=== PATIENT | female | born 1935 | race Caucasian/White ===

== ENCOUNTER 2016-12-26 10:20 | Emergency (ER) | payer MEDICARE, BC ==
[2016-12-26 10:36] VITALS: BP 142/83
--- NOTE | 2016-12-26 11:25 | EDM.PDOC ---
ED HPI ENT - General Chief Complaint: ENT Problem Stated Complaint: NOSE BLEED Time Seen by Provider: 12/26/16 11:13 Source: Reports: Patient, Family, RN notes reviewed History Limitations: Reports: No limitations - History of Present Illness INITIAL COMMENTS - FREE TEXT/NARRATIVE: 81-year-old female presents as a complaint of nosebleed, happened at 9 AM this morning sudden onset she did blow her nose in place and nose clip on. She recently had vascular stenting is now on Combivent Plavix, eliquis and aspirin also history of CVA denies any trauma - Related Data Allergies/ADRs: Allergies Allergy/AdvReac Type Severity Reaction Status Date / Time amoxicillin [Amoxicillin] Allergy Rash Verified 07/28/15 23:42 diclofenac Allergy Hives Verified 07/28/15 23:43 Macrolide Antibiotics Allergy Cannot Verified 12/26/16 10:47 Remember tizanidine HCl Allergy Hives Verified 07/28/15 23:43 [From Zanaflex] erythromycin base AdvReac Nausea and Verified 07/28/15 23:42 [Erythromycin Base] Vomiting Home Meds: Home Meds Atenolol 25 mg PO BID 02/18/15 [History] Lisinopril 2.5 mg PO DAILY 02/18/15 [History] Rosuvastatin [Crestor] 40 mg PO BEDTIME 02/18/15 [History] Cholecalciferol (Vitamin D3) [Vitamin D3] 2,000 unit PO DAILY 03/09/15 [History] Cranberry Conc/Ascorbic Acid [Cranberry Plus Vitamin C Sftgl] 1 ampule PO DAILY 03/09/15 [History] Nitroglycerin [Nitrostat] 0.4 mg SL ASDIRECTED 03/09/15 [History] Apixaban [Eliquis] 1 tab PO BID 12/26/16 [History] Aspirin [Halfprin] 1 tab PO DAILY 12/26/16 [History] Clopidogrel [Plavix] 75 mg PO DAILY 12/26/16 [History] Estradiol [Divigel] 1 dose TOP ASDIRECTED 12/26/16 [History] Pantoprazole [ProTONIX] 1 tab PO DAILY 12/26/16 [History] Past Medical History HEENT History: Reports: Cataract, Epistaxis Cardiovascular History: Reports: Afib, CAD, High cholesterol, Hypertension, [place] Respiratory History: Reports: Other (see below) Other Respiratory History: pneumonia Gastrointestinal History: Reports: GERD Other Gastrointestinal History: pyloric stenosis as an infant [employer]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 Other Female Surgeries/Procedures: Bladder suspension/rectalceal Social & Family History - Tobacco Use Smoking Status *Q: Never Smoker Years of Tobacco use: 15 Used Tobacco, but Quit: Yes Month Tobacco Last Used: 0 Second Hand Smoke Exposure: No - Alcohol Use Days Per Week of Alcohol Use: 0 Number of Drinks Per Day: 1 Total Drinks Per Week: 0 - Recreational Drug Use Recreational Drug Use: No ED ROS ENT - Review of Systems Review Of Systems: See Below Constitutional: Reports: no symptoms HEENT: Reports: Nosebleed Respiratory: Reports: No Symptoms Cardiovascular: Reports: No symptoms ED EXAM, ENT - Physical Exam Exam: See Below Exam Limited By: No limitations General Appearance: alert, WD/WN, no apparent distress Nose: normal inspection, dried blood Course - Vital Signs Last Recorded V/S: Last Vital Signs Temp 97.5 F 12/26/16 10:44 Pulse 84 12/26/16 10:44 Resp 14 12/26/16 10:44 BP 142/83 H 12/26/16 10:44 Pulse Ox 98 12/26/16 10:44 Departure - Departure Time of Disposition: 11:58 Disposition: Home, Self-Care 01 Condition: good Clinical Impression: Epistaxis Forms: ED Department Discharge Additional Instructions: 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, call or return to the ED with worsening of symptoms - Assessment/Plan Plan: Assessment Acuity = acute Site and laterality = epistaxis complicated patient with known history of atrial fibrillation, history of CVA recent stenting for coronary artery disease on triple therapy anticoagulation Etiology = combination aspirin, Plavix and eliquis Manifestations = none Location of injury = home Lab values = none Plan The bleeding had stopped by the time she arrived to the ED I did have a long discussion with her about her triple therapy one possibility is that she stop the eliquis for 6 months depending on her risk of stroke 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 This note was dictated using [employer] voice recognition software please call with any questions.
== END 2016-12-26 12:03 | disposition home or self-care (01) ==
LOC: JP.ED 10:20
DX: R04.0 Epistaxis (principal); I25.2 Old myocardial infarction; I10 Essential (primary) hypertension; I25.10 Atherosclerotic heart disease of native coronary artery without angina pectoris; I48.91 Unspecified atrial fibrillation; E78.00 Pure hypercholesterolemia, unspecified; K21.9 Gastro-esophageal reflux disease without esophagitis; F32.9 Major depressive disorder, single episode, unspecified; Z86.73 Personal history of transient ischemic attack (TIA), and cerebral infarction without residual deficits; Z98.49 Cataract extraction status, unspecified eye; Z95.5 Presence of coronary angioplasty implant and graft; Z98.890 Other specified postprocedural states; Z79.02 Long term (current) use of antithrombotics/antiplatelets; Z79.899 Other long term (current) drug therapy; Z88.1 Allergy status to other antibiotic agents; Z88.8 Allergy status to other drugs, medicaments and biological substances
CPT/HCPCS: 99282; 99283

== ENCOUNTER 2017-07-26 12:57 | Emergency (ER) | payer MEDICARE, BC ==
[2017-07-26] MEDS ORDERED: Oxymetazoline 0.05% Nasal Spray 15 ML Bottle NAS ONE (14:08)
--- NOTE | 2017-07-26 14:09 | EDM.PDOC ---
ED HPI GENERAL MEDICAL PROBLEM - General Chief Complaint: ENT Problem Stated Complaint: NOSE BLEED Time Seen by Provider: 07/26/17 14:08 Source of Information: Reports: Patient History Limitations: Reports: No Limitations - History of Present Illness INITIAL COMMENTS - FREE TEXT/NARRATIVE: pt is on plavix and asa and elequist. Wandyhas been having alot of nose bleeds off and on. Today when it started she was in town and it lasted about 2 hours. She had a nasal clamp and put that on. By the time she got here it was already improving. Onset: Today Duration: Hour(s): Associated Symptoms: Reports: No Other Symptoms, Other ( bleeding seemed to be getting better. ) - Related Data Allergies Allergy/AdvReac Type Severity Reaction Status Date / Time amoxicillin [Amoxicillin] Allergy Rash Verified 07/26/17 13:13 diclofenac Allergy Hives Verified 07/26/17 13:13 Macrolide Antibiotics Allergy Cannot Verified 07/26/17 13:13 Remember tizanidine HCl Allergy Hives Verified 07/26/17 13:13 [From Zanaflex] erythromycin base AdvReac Nausea and Verified 07/26/17 13:13 [Erythromycin Base] Vomiting Home Meds: Home Meds Lisinopril 2.5 mg PO DAILY 02/18/15 [History] Rosuvastatin [Crestor] 40 mg PO BEDTIME 02/18/15 [History] Cholecalciferol (Vitamin D3) [Vitamin D3] 2,000 unit PO DAILY 03/09/15 [History] Cranberry Conc/Ascorbic Acid [Cranberry Plus Vitamin C Sftgl] 1 ampule PO DAILY 03/09/15 [History] Nitroglycerin [Nitrostat] 0.4 mg SL ASDIRECTED 03/09/15 [History] Apixaban [Eliquis] 1 tab PO BID 12/26/16 [History] Aspirin [Halfprin] 1 tab PO DAILY 12/26/16 [History] Clopidogrel [Plavix] 75 mg PO DAILY 12/26/16 [History] Estradiol [Divigel] 1 dose TOP ASDIRECTED 12/26/16 [History] Pantoprazole [ProTONIX] 1 tab PO DAILY 12/26/16 [History] Metoprolol Tartrate [Metoprolol Tartrate] 50 mg PO BID 07/26/17 [History] Past Medical History HEENT History: Reports: Cataract, Epistaxis Cardiovascular History: Reports: Afib, CAD, High Cholesterol, Hypertension, [place] Respiratory History: Reports: Other (See Below) Other Respiratory History: pneumonia Gastrointestinal History: Reports: GERD Other Gastrointestinal History: 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: Reports: Musculoskeletal History: Reports: Osteoporosis Neurological History: Reports: CVA, TIA Psychiatric History: Reports: Depression Hematologic History: Reports: Anticoagulation Therapy - Infectious Disease History Infectious Disease History: Reports: Chicken Pox - Past Surgical History HEENT Surgical History: Reports: Cataract Surgery Cardiovascular Surgical History: Reports: Coronary Artery Stent, Other (See Below) Other Cardiovascular Surgeries/Procedures: Stents times 2 Other Female Surgeries/Procedures: Bladder suspension/rectalceal Social & Family History - Tobacco Use Smoking Status *Q: Never Smoker Years of Tobacco use: 15 Used Tobacco, but Quit: Yes Month Tobacco Last Used: 0 Second Hand Smoke Exposure: No - Caffeine Use Caffeine Use: Reports: Coffee - Alcohol Use Days Per Week of Alcohol Use: 0 Number of Drinks Per Day: 1 Total Drinks Per Week: 0 - Recreational Drug Use Recreational Drug Use: No ED ROS ENT - Review of Systems Review Of Systems: See Below Constitutional: Reports: No Symptoms HEENT: Reports: Nosebleed Respiratory: Reports: No Symptoms Cardiovascular: Reports: No Symptoms Endocrine: Reports: No Symptoms GI/Abdominal: Reports: No Symptoms : Reports: No Symptoms Musculoskeletal: Reports: No Symptoms Skin: Reports: No Symptoms Neurological: Reports: No Symptoms Psychiatric: Reports: No Symptoms ED EXAM, ENT - Physical Exam Exam: See Below Text/Narrative:: pt arrived with bleeding from the left nostril. She had a nasal clmp on. The bleeding has stopped. The nose was sprayed with afrin. This looks good at this time. Exam Limited By: No Limitations General Appearance: Alert, Anxious Ears: Normal TMs Nose: Other (pt was ozzing slightly from the left nostril) Mouth/Throat: Normal Inspection Head: Atraumatic Neck: Normal Inspection Respiratory/Chest: No Respiratory Distress Course - Vital Signs Last Recorded V/S: Last Vital Signs Temp 36.0 C 07/26/17 13:06 Pulse 72 07/26/17 13:06 Resp 14 07/26/17 13:06 BP 172/94 H 07/26/17 13:06 Pulse Ox 99 07/26/17 13:06 - Orders/Labs/Meds Meds: Medications Discontinued Medications Generic Name Dose Route Start Last Admin Trade Name Eusebio PRN Reason Stop Dose Admin Oxymetazoline HCl 1 ml 07/26/17 14:08 07/26/17 14:14 Afrin Original 0.05% Nasal Henning COURTNEY 07/26/17 14:09 1 ml ONETIME ONE Administration - Re-Assessments/Exams Free Text/Narrative Re-Assessment/Exam: 07/26/17 14:53 after it was sprayed there was no further bleeding. Departure - Departure Time of Disposition: 14:47 Disposition: Home, Self-Care 01 Condition: Fair Clinical Impression: Nasal bleeding - Discharge Information Referrals: Francisco España MD [Primary Care Provider] - Forms: ED Department Discharge Care Plan Goals: humidifier, If pt is ozzing use afrin spray to shrink the. Use the nasal clamp vessels
[2017-07-26 14:52] VITALS: BP 102/53
== END 2017-07-26 15:04 | disposition home or self-care (01) ==
LOC: JP.ED 12:57
DX: R04.0 Epistaxis (principal); I10 Essential (primary) hypertension; I48.91 Unspecified atrial fibrillation; K21.9 Gastro-esophageal reflux disease without esophagitis; Z79.82 Long term (current) use of aspirin; Z79.899 Other long term (current) drug therapy; Z88.1 Allergy status to other antibiotic agents; Z88.8 Allergy status to other drugs, medicaments and biological substances
CPT/HCPCS: 99282; 99283

== ENCOUNTER 2019-11-16 10:37 | Emergency (ER) | payer MEDICARE, BC ==
--- NOTE | 2019-11-16 12:29 | CRLCT ---
INDICATION: Near syncope. TECHNIQUE: Noncontrast head CT scan. COMPARISON: Head CT dated 10/29/2016. FINDINGS: Axial noncontrast images through the brain parenchyma demonstrates no acute intracranial hemorrhage or mass. No midline shift. No abnormal extra-axial air fluid collections periventricular hypo lucencies may represent chronic small vessel ischemic change. Mucosal thickening of the ethmoid air cells paranasal sinuses mastoid air cells skull and scalp appear unremarkable. IMPRESSION: No acute intracranial hemorrhage or mass. Please note that all CT scans at this facility use dose modulation, iterative reconstruction, and/or weight-based dosing when appropriate to reduce radiation dose to as low as reasonably achievable. Dictated by Fara Huerta MD @ Nov 16 2019 12:24PM Signed by Dr. Fara Huerta @ Nov 16 2019 12:27PM
[2019-11-16] MEDS ORDERED: Meclizine 25 MG Tab PO ONE (13:11)
--- NOTE | 2019-11-16 14:41 | EDM.PDOC ---
ED HPI GENERAL MEDICAL PROBLEM - General Chief Complaint: Neuro Symptoms/Deficits Stated Complaint: BECAME DIZZY AND FELL Time Seen by Provider: 11/16/19 11:00 Source of Information: Reports: Patient History Limitations: Reports: No Limitations - History of Present Illness INITIAL COMMENTS - FREE TEXT/NARRATIVE: pt got up and was doing fine this am. She suddenly was very weak and off balance and she did fall against a chair and she did hit the left chest and cocyx area. She still is feeling dizzy and like the room is spinning. She does not have a headache,. She does not have any visual symptopms. Onset: Today, Sudden Duration: Hour(s): Location: Reports: Head, Chest, Back Associated Symptoms: Reports: Diaphoresis, Syncope, Other (pt fell but she did not pass out. ) - Related Data Allergies Allergy/AdvReac Type Severity Reaction Status Date / Time amoxicillin [Amoxicillin] Allergy Rash Verified 11/16/19 11:04 diclofenac Allergy Hives Verified 11/16/19 11:04 Macrolide Antibiotics Allergy Cannot Verified 11/16/19 11:04 Remember tizanidine HCl Allergy Hives Verified 11/16/19 11:04 [From Zanaflex] erythromycin base AdvReac Nausea and Verified 11/16/19 11:04 [Erythromycin Base] Vomiting Home Meds: Home Meds Lisinopril 2.5 mg PO DAILY 02/18/15 [History] Rosuvastatin [Crestor] 40 mg PO BEDTIME 02/18/15 [History] Cholecalciferol (Vitamin D3) [Vitamin D3] 2,000 unit PO DAILY 03/09/15 [History] Cranberry Conc/Ascorbic Acid [Cranberry Plus Vitamin C Sftgl] 1 ampule PO DAILY 03/09/15 [History] Nitroglycerin [Nitrostat] 0.4 mg SL ASDIRECTED 03/09/15 [History] Apixaban [Eliquis] 1 tab PO BID 12/26/16 [History] Aspirin [Halfprin] 1 tab PO DAILY 12/26/16 [History] Pantoprazole [ProTONIX] 1 tab PO DAILY 12/26/16 [History] Metoprolol Tartrate 50 mg PO BID 07/26/17 [History] Past Medical History HEENT History: Reports: Cataract, Epistaxis Cardiovascular History: Reports: Afib, CAD, High Cholesterol, Hypertension, [place] Respiratory History: Reports: Other (See Below) Other Respiratory History: pneumonia Gastrointestinal History: Reports: GERD Other Gastrointestinal History: 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 History: Reports: Musculoskeletal History: Reports: Osteoporosis Neurological History: Reports: CVA, TIA Psychiatric History: Reports: Depression Hematologic History: Reports: Anticoagulation Therapy - Infectious Disease History Infectious Disease History: Reports: Chicken Pox - Past Surgical History HEENT Surgical History: Reports: Cataract Surgery Cardiovascular Surgical History: Reports: Coronary Artery Stent, Other (See Below) Other Cardiovascular Surgeries/Procedures: Stents times 2 Other Female Surgeries/Procedures: Bladder suspension/rectalceal Social & Family History - Tobacco Use Smoking Status *Q: Never Smoker - Caffeine Use Caffeine Use: Reports: Coffee ED ROS GENERAL - Review of Systems Review Of Systems: See Below Constitutional: Reports: No Symptoms HEENT: Reports: No Symptoms Respiratory: Reports: Other ( some left sided chest pain) Cardiovascular: Reports: No Symptoms Endocrine: Reports: No Symptoms GI/Abdominal: Reports: No Symptoms : Reports: Hematuria Musculoskeletal: Reports: No Symptoms Neurological: Reports: Other ( sensation of vertigo) Psychiatric: Reports: Anxiety ED EXAM, NEURO - Physical Exam Exam: See Below Text/Narrative:: pt arrived after having a sudden episode of weakness and being off balance. She did fall against the chair. she hit her left chest with bruising . She hit her left coccyx. She is on elequist. Exam Limited By: No Limitations General Appearance: Alert, Anxious, Moderate Distress, Other (pupils are equal and reactive. ) Ears: Normal TMs Nose: Normal Inspection Throat/Mouth: Normal Inspection Head Exam: Atraumatic Neck: Normal Inspection Respiratory/Chest: No Respiratory Distress, Other (pt has a large bruise over the left lateral chest area. She is tender to palpate in this area. ) Cardiovascular: Regular Rate, Rhythm GI/Abdominal: Soft, Non-Tender (Female) Exam: Deferred Rectal (Female) Exam: Deferred Neurological: Alert, Oriented x 3 Course - Vital Signs Last Recorded V/S: Last Vital Signs Temp 36.0 C L 11/16/19 11:19 Pulse 63 11/16/19 14:00 Resp 17 11/16/19 12:18 BP 137/76 11/16/19 14:00 Pulse Ox 97 11/16/19 12:18 Orthostatic Blood Pressure [ 166/94 Standing] Orthostatic Blood Pressure [ 171/94 Sitting] Orthostatic Blood Pressure [ 175/90 Supine] - Orders/Labs/Meds Labs: Laboratory Tests 11/16/19 11/16/19 11/16/19 Range/Units 10:57 11:02 11:02 WBC 7.2 (4.5-11.0) K/uL RBC 4.35 (3.30-5.50) M/uL Hgb 13.2 (12.0-15.0) g/dL Hct 41.8 (36.0-48.0) % MCV 96 (80-98) fL MCH 30 (27-31) pg MCHC 32 (32-36) % Plt Count 214 (150-400) K/uL Neut % (Auto) 63 (36-66) % Lymph % (Auto) 23 L (24-44) % [place] % (Auto) 10 H (2-6) % Eos % (Auto) 3 (2-4) % Baso % (Auto) 0 (0-1) % Sodium 140 (140-148) mmol/L Potassium 4.0 (3.6-5.2) mmol/L Chloride 102 (100-108) mmol/L Carbon Dioxide 28 (21-32) mmol/L Anion Gap 9.7 (5.0-14.0) mmol/L BUN 19 H (7-18) mg/dL Creatinine 0.7 (0.6-1.0) mg/dL Est Cr Clr Drug Dosing 50.37 mL/min Estimated GFR (MDRD) > 60 (>60) Glucose 118 H (74-106) mg/dL Calcium 8.9 (8.5-10.1) mg/dL Total Bilirubin 0.5 D (0.2-1.0) mg/dL AST 22 (15-37) U/L ALT 29 (12-78) U/L Alkaline Phosphatase 77 (46-116) U/L Total Protein 7.1 (6.4-8.2) g/dL Albumin 3.4 (3.4-5.0) g/dL Globulin 3.7 H (2.3-3.5) g/dL Albumin/Globulin Ratio 0.9 L (1.2-2.2) Urine Color Yellow (YELLOW) Urine Appearance Clear (CLEAR) Urine pH 7.0 (5.0-8.0) Ur Specific [place] 1.010 (1.008-1.030) Urine Protein Negative (NEGATIVE) mg/dL Urine Glucose (UA) Negative (NEGATIVE) mg/dL Urine Ketones Negative (NEGATIVE) mg/dL Urine Occult Blood Negative (NEGATIVE) Urine Nitrite Negative (NEGATIVE) Urine Bilirubin Negative (NEGATIVE) Urine Urobilinogen 0.2 (0.2-1.0) EU/dL Ur Leukocyte Esterase Negative (NEGATIVE) Urine RBC Not seen (0-5) Urine WBC Not seen (0-5) Ur Epithelial Cells Few Amorphous Sediment Not seen Urine Bacteria Not seen Urine Mucus Not seen Meds: Medications Discontinued Medications Generic Name Dose Route Start Last Admin Trade Name Freq PRN Reason Stop Dose Admin Meclizine HCl 25 mg 11/16/19 13:11 11/16/19 13:24 Antivert PO 11/16/19 13:12 25 mg ONETIME ONE Administration - Re-Assessments/Exams Free Text/Narrative Re-Assessment/Exam: 11/18/19 10:36 pt arrived with a history of a episiode of weakness. She had a cat scan of the head that was normal. She had normal labs and xrays of her chest ribs and spine- -lumbar and coccyx. She still had some vertigo. She was given antivert and she gradually improved. By history she has had one previous episode of vertigo. Departure - Departure Time of Disposition: 14:41 Disposition: Home, Self-Care 01 Condition: Fair Clinical Impression: Inner ear dysfunction, Vertigo, Contusion of left chest wall, Contusion of coccyx - Discharge Information Instructions: Vertigo, [id number] Referrals: Francisco España MD [Primary Care Provider] - Forms: ED Department Discharge Care Plan Goals: low activity, tylenol for pauin, antivert 25 mg tid for next 2-3 days and then prn. rtc if further symptoms. Sepsis Event Note - Evaluation Sepsis Screening Result: No Definite Risk - Focused Exam Date Exam was Performed: 11/18/19 Time Exam was Performed: 10:28
[2019-11-16 14:52] VITALS: BP 137/76; PULSE 63
--- NOTE | 2019-11-17 12:06 | CR ---
Ribs 2V wo Chest Lt, Lumbar Spine 2 or 3V, Sacrum Coccyx Min 2V CLINICAL HISTORY: Contusion FINDINGS: There is no acute fracture within the ribs. No destructive changes are seen. There is no focal pleural thickening or obvious effusion. Prescribe aorta IMPRESSION: Negative left ribs. Ribs 2V wo Chest Lt, Lumbar Spine 2 or 3V, Sacrum Coccyx Min 2V CLINICAL HISTORY: Pain FINDINGS: There is a transitional sacral segment. There is narrowing of the L5-S1 disc space. There is a grade 1 anterolisthesis of L5 on S1 and some vacuum disc phenomena. Some bone detail is obscured by bowel content. No fracture line is identified. Impression: Transitional sacral segment No definite fracture seen. Ribs 2V wo Chest Lt, Lumbar Spine 2 or 3V, Sacrum Coccyx Min 2V CLINICAL HISTORY: Back pain FINDINGS: The vertebral body heights are maintained. There is a transitional lumbar sacral segment. There is narrowing at the L5-S1 disc space. There is grade 1 anterolisthesis of L5 on S1 due to facet disease. There is mild diffuse spondylosis. 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
== END 2019-11-16 14:52 | disposition home or self-care (01) ==
LOC: JP.ED 10:37
DX: S20.212A Contusion of left front wall of thorax, initial encounter (principal); S30.0XXA Contusion of lower back and pelvis, initial encounter; R42 Dizziness and giddiness; H83.2X9 Labyrinthine dysfunction, unspecified ear; I10 Essential (primary) hypertension; I48.91 Unspecified atrial fibrillation; Z86.73 Personal history of transient ischemic attack (TIA), and cerebral infarction without residual deficits; Z88.1 Allergy status to other antibiotic agents; Z88.6 Allergy status to analgesic agent; Z88.8 Allergy status to other drugs, medicaments and biological substances; Z79.82 Long term (current) use of aspirin; Z79.899 Other long term (current) drug therapy; Z79.01 Long term (current) use of anticoagulants; W19.XXXA Unspecified fall, initial encounter
CPT/HCPCS: 36415; 70450; 71100; 72100; 72220; 80053; 81001; 85025; 99283; 99284; A9270

== ENCOUNTER 2021-08-07 15:31 | Emergency (ER) | payer MEDICARE, BC ==
--- NOTE | 2021-08-07 17:16 | EDM.PDOC ---
ED HPI GENERAL MEDICAL PROBLEM - General Chief Complaint: General Stated Complaint: DIZZINESS, WEAKNESS, VIA NORTH Time Seen by Provider: 08/07/21 17:16 Source of Information: Reports: Patient, Family, RN Notes Reviewed History Limitations: Reports: No Limitations - History of Present Illness INITIAL COMMENTS - FREE TEXT/NARRATIVE: Charissa presents today via EMS for complaints of not feeling right, fatigue, feeling weak, tired and not sleeping well. She reports she has had generalized weakness since last Sunday and not feeling like herself with dizziness. She reports dizziness with changes in her position or turning her head too fast. She states the move will spin, especially if she turns too fast. She has taken meclizine twice with no improvement of her symptoms. She states she had an episode today with left chest and left jaw pain but it went away. She denies any recent injury, falls, trauma, fever, chills, nausea, vomiting or other concerns. She reports pain to the left synagogue for the past 6 weeks. She denies any other issues or concerns. - Related Data Allergies Allergy/AdvReac Type Severity Reaction Status Date / Time amoxicillin [Amoxicillin] Allergy Rash Verified 08/07/21 17:00 diclofenac Allergy Hives Verified 08/07/21 17:00 Macrolide Antibiotics Allergy Cannot Verified 08/07/21 17:00 Remember tizanidine HCl Allergy Hives Verified 08/07/21 17:00 [From Zanaflex] erythromycin base AdvReac Nausea and Verified 08/07/21 17:00 [Erythromycin Base] Vomiting Home Meds: Home Meds Lisinopril 2.5 mg PO DAILY 02/18/15 [History] Rosuvastatin [Crestor] 40 mg PO BEDTIME 02/18/15 [History] Cholecalciferol (Vitamin D3) [Vitamin D3] 2,000 unit PO DAILY 03/09/15 [History] Cranberry Conc/Ascorbic Acid [Cranberry Plus Vitamin C Sftgl] 1 ampule PO DAILY 03/09/15 [History] Apixaban [Eliquis] 1 tab PO BID 12/26/16 [History] Pantoprazole [ProTONIX] 1 tab PO DAILY 12/26/16 [History] Metoprolol Tartrate 125 mg PO BID 07/26/17 [History] Past Medical History HEENT History: Reports: Cataract, Epistaxis Cardiovascular History: Reports: Afib, CAD, High Cholesterol, Hypertension, NE Respiratory History: Reports: Other (See Below) Other Respiratory History: pneumonia Gastrointestinal History: Reports: GERD Other Gastrointestinal History: pyloric stenosis as an infant 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: Musculoskeletal History: Reports: Osteoporosis Neurological History: Reports: CVA, TIA Psychiatric History: Reports: Depression Hematologic History: Reports: Anticoagulation Therapy - Infectious Disease History Infectious Disease History: Reports: Chicken Pox - Past Surgical History HEENT Surgical History: Reports: Cataract Surgery Cardiovascular Surgical History: Reports: Coronary Artery Stent, Other (See Below) Other Cardiovascular Surgeries/Procedures: Stents times 2 GI Surgical History: Reports: Colonoscopy Other GI Surgeries/Procedures: cystocele repair and rectorcele repair Female Surgical History: Reports: Hysterectomy Other Female Surgeries/Procedures: Bladder suspension/rectalceal Social & Family History - Tobacco Use Tobacco Use Status *Q: Former Tobacco User Years of Tobacco use: 15 Packs/Tins Daily: 0.5 Used Tobacco, but Quit: Yes Month/Year Tobacco Last Used: 1969 - Caffeine Use Caffeine Use: Reports: None - Recreational Drug Use Recreational Drug Use: No ED ROS GENERAL - Review of Systems Review Of Systems: See Below Constitutional: Reports: Malaise, Weakness, Fatigue. Denies: Fever, Chills, Night Sweats, Diaphoresis, Decreased Appetite, Weight Loss HEENT: Reports: No Symptoms Respiratory: Reports: No Symptoms Cardiovascular: Reports: No Symptoms Endocrine: Reports: Fatigue, Polyuria (She reports this is common for her) GI/Abdominal: Reports: No Symptoms : Reports: No Symptoms Musculoskeletal: Reports: No Symptoms Skin: Reports: No Symptoms Neurological: Reports: Dizziness, Headache (left temporal pain for the past 6 weeks. ), Pre-Existing Deficit (history of CVA), Weakness. Denies: Confusion, Numbness, Paresthesia, Seizure, Syncope, Tingling, Tremors, Trouble Speaking, Difficulty Walking, Change in Speech, Gait Disturbance Psychiatric: Reports: Anxiety. Denies: Agitation, Confusion, Depression, Hallucinations, Homicidal Ideation, Mood Lability, Suicidal Ideation Hematologic/Lymphatic: Reports: No Symptoms Immunologic: Reports: No Symptoms ED EXAM, GENERAL - Physical Exam Exam: See Below Exam Limited By: No Limitations General Appearance: Alert, WD/WN, No Apparent Distress Eye Exam: Bilateral Eye: EOMI, Normal Inspection, PERRL Ears: Normal External Exam, Normal Canal, Hearing Grossly Normal, Normal TMs Nose: Normal Inspection, Normal Mucosa, No Blood Throat/Mouth: Normal Inspection, Normal Lips, Normal Teeth, Normal Gums, Normal Oropharynx, Normal Voice, No Airway Compromise Head: Atraumatic, Normocephalic Neck: Normal Inspection, Supple, Non-Tender, Full Range of Motion. No: Lymphadenopathy (R), Lymphadenopathy (L) Respiratory/Chest: No Respiratory Distress, Lungs Clear, Normal Breath Sounds, No Accessory Muscle Use, Chest Non-Tender. No: Decreased Breath Sounds, Crackles, Rales, Rhonchi, Wheezing, Stridor, Splinting Cardiovascular: Normal Peripheral Pulses, Regular Rate, Rhythm, No Edema, No Gallop, No Murmur, No Rub Peripheral Pulses: 4+: Radial (L), Radial (R), Dorsalis Pedis (L), Dorsalis Pedis (R) GI/Abdominal: Normal Bowel Sounds, Soft, Non-Tender, No Organomegaly, No Distention, No Abnormal Bruit, No Mass, Pelvis Stable Back Exam: Normal Inspection, Full Range of Motion. No: CVA Tenderness (R), CVA Tenderness (L) Extremities: Normal Inspection, Normal Range of Motion, Non-Tender, No Pedal Edema, Normal Capillary Refill Neurological: Alert, Oriented, CN II-XII Intact, Normal Cognition, Normal Reflexes, No Motor/Sensory Deficits Psychiatric: Normal Affect, Normal Mood Skin Exam: Warm, Dry, Intact, Normal Color, No Rash Lymphatic: No Adenopathy #1 Interpretation EKG Date: 08/07/21 Time: 17:55 Rhythm: NSR [place]: Other (Abnrmal R wave progression early transition) P-Wave: Present QRS: Normal ST-T: Normal QT: Normal Comparison: NA - No Prior EKG EKG Interpretation Comments: Normal sinus Course - Vital Signs Last Recorded V/S: Last Vital Signs Temp 36.6 C 08/07/21 17:04 Pulse 62 08/07/21 19:25 Resp 20 08/07/21 17:10 BP 125/59 L 08/07/21 19:25 Pulse Ox 100 08/07/21 19:25 - Orders/Labs/Meds Orders: Active Orders 24 hr Category Date Time Status EKG 12 Lead [EK] Routine Ther 08/07/21 17:41 Ordered Labs: Laboratory Tests 08/07/21 08/07/21 08/07/21 Range/Units 17:41 17:53 17:53 WBC 8.1 (4.5-11.0) K/uL RBC 4.51 (3.30-5.50) M/uL Hgb 14.0 (12.0-15.0) g/dL Hct 43.3 (36.0-48.0) % MCV 96 (80-98) fL MCH 31 (27-31) pg MCHC 32 (32-36) % Plt Count 262 (150-400) K/uL Neut % (Auto) 68.7 H (36-66) % Lymph % (Auto) 20.0 L (24-44) % [place] % (Auto) 9.7 H (2-6) % Eos % (Auto) 1.2 L (2-4) % Baso % (Auto) 0.4 (0-1) % Sodium 142 (140-148) mmol/L Potassium 4.4 (3.6-5.2) mmol/L Chloride 105 (100-108) mmol/L Carbon Dioxide 26 (21-32) mmol/L Anion Gap 11.0 (5.0-14.0) mmol/L BUN 15 (7-18) mg/dL Creatinine 0.7 (0.6-1.0) mg/dL Est Cr Clr Drug Dosing 50.74 mL/min Estimated GFR (MDRD) > 60 (>60) Glucose 100 (74-106) mg/dL Calcium 8.9 (8.5-10.1) mg/dL Magnesium (1.8-2.4) mg/dL Total Bilirubin 0.4 (0.2-1.0) mg/dL AST 17 (15-37) U/L ALT 28 (12-78) U/L Alkaline Phosphatase 90 (46-116) U/L Troponin I < 0.017 (0.000-0.056) ng/mL Total Protein 7.1 (6.4-8.2) g/dL Albumin 3.5 (3.4-5.0) g/dL Globulin 3.6 H (2.3-3.5) g/dL Albumin/Globulin Ratio 1.0 L (1.2-2.2) TSH, Ultra Sensitive 2.236 (0.358-3.740) uIU/mL Urine Color (YELLOW) Urine Appearance (CLEAR) Urine pH (5.0-8.0) Ur Specific [place] (1.008-1.030) Urine Protein (NEGATIVE) mg/dL Urine Glucose (UA) (NEGATIVE) mg/dL Urine Ketones (NEGATIVE) mg/dL Urine Occult Blood (NEGATIVE) Urine Nitrite (NEGATIVE) Urine Bilirubin (NEGATIVE) Urine Urobilinogen (0.2-1.0) EU/dL Ur Leukocyte Esterase (NEGATIVE) Urine RBC (0-5) Urine WBC (0-5) Ur Epithelial Cells Amorphous Sediment Urine Bacteria Urine Mucus SARS CoV-2 RNA Rapid KAELYN Negative 08/07/21 08/07/21 Range/Units 17:53 18:18 WBC (4.5-11.0) K/uL RBC (3.30-5.50) M/uL Hgb (12.0-15.0) g/dL Hct (36.0-48.0) % MCV (80-98) fL MCH (27-31) pg MCHC (32-36) % Plt Count (150-400) K/uL Neut % (Auto) (36-66) % Lymph % (Auto) (24-44) % [place] % (Auto) (2-6) % Eos % (Auto) (2-4) % Baso % (Auto) (0-1) % Sodium (140-148) mmol/L Potassium (3.6-5.2) mmol/L Chloride (100-108) mmol/L Carbon Dioxide (21-32) mmol/L Anion Gap (5.0-14.0) mmol/L BUN (7-18) mg/dL Creatinine (0.6-1.0) mg/dL Est Cr Clr Drug Dosing mL/min Estimated GFR (MDRD) (>60) Glucose (74-106) mg/dL Calcium (8.5-10.1) mg/dL Magnesium 2.2 (1.8-2.4) mg/dL Total Bilirubin (0.2-1.0) mg/dL AST (15-37) U/L ALT (12-78) U/L Alkaline Phosphatase (46-116) U/L Troponin I (0.000-0.056) ng/mL Total Protein (6.4-8.2) g/dL Albumin (3.4-5.0) g/dL Globulin (2.3-3.5) g/dL Albumin/Globulin Ratio (1.2-2.2) TSH, Ultra Sensitive (0.358-3.740) uIU/mL Urine Color Yellow (YELLOW) Urine Appearance Clear (CLEAR) Urine pH 7.0 (5.0-8.0) Ur Specific [place] 1.020 (1.008-1.030) Urine Protein Negative (NEGATIVE) mg/dL Urine Glucose (UA) Negative (NEGATIVE) mg/dL Urine Ketones Negative (NEGATIVE) mg/dL Urine Occult Blood Trace-intact H (NEGATIVE) Urine Nitrite Negative (NEGATIVE) Urine Bilirubin Negative (NEGATIVE) Urine Urobilinogen 0.2 (0.2-1.0) EU/dL Ur Leukocyte Esterase Trace H (NEGATIVE) Urine RBC 0-5 (0-5) Urine WBC 0-5 (0-5) Ur Epithelial Cells Few Amorphous Sediment Not seen Urine Bacteria Rare Urine Mucus Moderate SARS CoV-2 RNA Rapid KAELYN COVID test negative Meds: Medications Discontinued Medications Generic Name Dose Route Start Last Admin Trade Name Freq PRN Reason Stop Dose Admin Meclizine HCl 25 mg 08/07/21 19:27 08/07/21 19:33 Meclizine 25 Mg Tab PO 08/07/21 19:28 25 mg ONETIME ONE Administration - Radiology Interpretation Free Text/Narrative:: Head CT without contrast negative for any acute findings. - Re-Assessments/Exams Free Text/Narrative Re-Assessment/Exam: 08/07/21 19:28 Discussed lab results, EKG, negative head CT. No acute findings, symptoms present like vertigo. We will provide meclizine 25mg PO and she can take at home every 8 hours for vertigo. Follow up with primary in 7 to 14 days for recheck. Patient and family in agreement with plan. All their questions were answered. Departure - Departure Time of Disposition: 19:30 Disposition: Home, Self-Care 01 Condition: Good Clinical Impression: Vertigo - Discharge Information *PRESCRIPTION DRUG MONITORING PROGRAM REVIEWED*: Not Applicable *COPY OF PRESCRIPTION DRUG MONITORING REPORT IN PATIENT SHARA: Not Applicable Instructions: Vertigo, [id number] Referrals: Francisco España MD [Primary Care Provider] - Forms: ED Department Discharge Additional Instructions: You have been evaluated and treated for vertigo. Your lab work, EKG, UA and head CT were all negative today. COVID test negative today. Work on increased water intake, consider OT for strengthening. Take meclizine 25mg by mouth every 8 hours to help with vertigo. Follow up with primary in 7 to 14 days for a recheck. Return to the emergency room for any worsening, issues or concerns. Sepsis Event Note (ED) - Evaluation Sepsis Screening Result: No Definite Risk - Focused Exam Vital Signs: Vital Signs Temp Pulse Pulse Resp BP Pulse Ox 08/07/21 19:25 62 125/59 L 100 08/07/21 17:10 67 20 112/79 99 08/07/21 17:04 36.6 C 67 20 112/79 98 - My Orders Last 24 Hours: My Active Orders 08/07/21 17:41 EKG 12 Lead [EK] Routine - Assessment/Plan Last 24 Hours: My Active Orders 08/07/21 17:41 EKG 12 Lead [EK] Routine Assessment:: Vertigo Plan: Patient evaluated and treated for vertigo. Lab work, EKG, UA and head CT were all negative today. COVID test negative today. Work on increased water intake, consider OT for strengthening. Take meclizine 25mg by mouth every 8 hours to help with vertigo. Follow up with primary in 7 to 14 days for a recheck. Return to the emergency room for any worsening, issues or concerns.
--- NOTE | 2021-08-07 18:56 | CRLCT ---
For Patients: As a result of the Century Cures Act, medical imaging exams and procedure reports are released immediately into your electronic medical record. You may view this report before your referring provider. If you have questions, please contact your health care provider. HISTORY: Left-sided head pain. TECHNIQUE: Noncontrast head CT. COMPARISON: 11/16/2019. FINDINGS: There is no acute intracranial hemorrhage or acute ischemic infarct. Areas of white matter low attenuation are nonspecific but likely reflect sequelae of chronic small vessel ischemic changes. No mass effect or midline shift. No hydrocephalus. No extra-axial collection or hematoma. No acute loss of aldridge-white differentiation. Mastoid air cells are clear. Mucosal thickening involving multiple paranasal sinuses. No acute skull fracture. IMPRESSION: 1. No acute intracranial disease. 2. Areas of white matter low attenuation which are nonspecific but likely reflect sequelae of chronic small vessel ischemic changes. Dictated by Kamar Toney MD @ 08/07/2021 6:55:06 PM Please note that all CT scans at this facility use dose modulation, iterative reconstruction, and/or weight-based dosing when appropriate to reduce radiation dose to as low as reasonably achievable. Dictated by: Kamar Toney MD @ 08/07/2021 18:55:13 (Electronically Signed)
[2021-08-07 19:27] VITALS: BP 125/59; PULSE 62
[2021-08-07] MEDS ORDERED: Meclizine 25 MG Tab PO ONE (19:27)
== END 2021-08-07 19:41 | disposition home or self-care (01) ==
LOC: JP.ED 15:31
DX: R42 Dizziness and giddiness (principal); I48.91 Unspecified atrial fibrillation; I25.10 Atherosclerotic heart disease of native coronary artery without angina pectoris; E78.00 Pure hypercholesterolemia, unspecified; I10 Essential (primary) hypertension; I25.2 Old myocardial infarction; K21.9 Gastro-esophageal reflux disease without esophagitis; Z79.01 Long term (current) use of anticoagulants; Z79.899 Other long term (current) drug therapy; Z87.891 Personal history of nicotine dependence; Z86.73 Personal history of transient ischemic attack (TIA), and cerebral infarction without residual deficits; Z88.0 Allergy status to penicillin; Z88.1 Allergy status to other antibiotic agents; Z88.8 Allergy status to other drugs, medicaments and biological substances; Z20.822 Contact with and (suspected) exposure to COVID-19
CPT/HCPCS: 36415; 70450; 80053; 81001; 83735; 84443; 84484; 85025; 93005; 99285; A9270; U0002

== ENCOUNTER 2022-09-09 14:21 | Emergency (ER) | payer MEDICARE, BC ==
[2022-09-09] MEDS ORDERED: Sodium Chloride 0.9% 10 ML Syringe FLUSH PRN (14:31)
[2022-09-09 15:08] LABS: TROPONIN I HIGH SENSITIVITY 7.3 pg/mL (<=60.3)
[2022-09-09 16:20] VITALS: BP 139/81; PULSE 87
== END 2022-09-09 16:43 | disposition home or self-care (01) ==
LOC: JP.ED 14:21
DX: I48.0 Paroxysmal atrial fibrillation (principal); I25.10 Atherosclerotic heart disease of native coronary artery without angina pectoris; E78.00 Pure hypercholesterolemia, unspecified; I10 Essential (primary) hypertension; Z88.0 Allergy status to penicillin; Z88.6 Allergy status to analgesic agent; Z88.1 Allergy status to other antibiotic agents; Z79.899 Other long term (current) drug therapy; Z79.01 Long term (current) use of anticoagulants; Z90.710 Acquired absence of both cervix and uterus
CPT/HCPCS: 36415; 71045; 80048; 81001; 84484; 85025; 93005; 99285; J3490

== ENCOUNTER 2023-09-20 17:21 | Inpatient (IN) | payer MEDICARE, BC ==
[2023-09-20] MEDS ORDERED: Sodium Chloride 0.9% 10 ML Syringe FLUSH PRN (17:48)
[2023-09-20] MEDS ORDERED: Ondansetron 4 MG/2 ML SDV IVPUSH ONE (17:49)
[2023-09-20] MEDS ORDERED: Sodium Chloride 0.9% 1,000 ML IV ONE (17:49)
[2023-09-20] MEDS ORDERED: HYDROmorphone 0.5 MG/0.5 ML Syringe IVPUSH ONE (17:49)
[2023-09-20 17:58] LABS: BASOPHILS ABSOLUTE AUTO 0.03 K/uL (0.00-0.10); BASOPHILS PERCENT AUTO 0.3 % (0.1-1.3); HEMATOCRIT 42.3 % (34.3-46.0); HEMOGLOBIN 13.9 g/dL (11.2-15.5); IMMATURE GRAN PERCENT AUTO 0.2 % (0.0-0.7); LYMPHOCYTES ABSOLUTE AUTO 1.93 K/uL (0.8-3.3); LYMPHOCYTES PERCENT AUTO 19.1 % (11.4-47.7); MEAN CORPUSCULAR HEMOGLOBIN 31.4 pg (31.6-35.5); MEAN CORPUSCULAR HGB CONC 32.9 g/dL (31.6-35.5); MEAN CORPUSCULAR VOLUME 95.7 fL (81.4-99.0); MONOCYTES ABSOLUTE AUTO 0.67 K/uL (0.20-0.90); MONOCYTES PERCENT AUTO 6.6 % (3.3-12.6); NEUTROPHILS ABSOLUTE AUTO 7.36 K/uL (1.0-7.6); NEUTROPHILS PERCENT AUTO 72.8 % (40.0-78.1); PLATELET COUNT,PLT 248 K/uL (130-375); RED BLOOD CELL COUNT 4.42 M/uL (3.77-5.24); WHITE BLOOD CELL COUNT,WBC 10.1 K/uL (3.2-11.0)
[2023-09-20 17:59] LABS: IMMATURE GRAN ABSOLUTE AUTO 0.02 K/uL (0.00-0.23)
[2023-09-20 18:23] LABS: A/G RATIO 1.1 (1.2-2.2); ALANINE AMINOTRANSFERASE,ALT 30 U/L (12-78); ALBUMIN 3.8 g/dL (3.4-5.0); ALKALINE PHOSPHATASE 93 U/L (46-116); ANION GAP 9.8 mmol/L (5.0-14.0); ASPARTATE AMNIOTRANSFERASE,AST 18 U/L (15-37); BILIRUBIN TOTAL 0.5 mg/dL (0.2-1.0); BLOOD UREA NITROGEN,BUN 19 mg/dL (7-18); C-REACTIVE PROTEIN < 0.50 mg/dL (<0.50); CALCIUM 8.9 mg/dL (8.5-10.1); CARBON DIOXIDE,CO2 29 mmol/L (21-32); CHLORIDE,CL 101 mmol/L (100-108); CREATININE 0.7 mg/dL (0.6-1.0); ESTIMATED GFR 84 mL/min (>60); GLUCOSE RANDOM 132 mg/dL (74-106); POTASSIUM,K 3.8 mmol/L (3.6-5.2); PROTEIN TOTAL,TP 7.4 g/dL (6.4-8.2); SODIUM,NA 136 mmol/L (140-148); TROPONIN I HIGH SENSITIVITY 6.7 pg/mL (<=60.3)
[2023-09-20 18:27] LABS: LACTIC ACID 1.1 mmol/L (0.4-2.0)
[2023-09-20] MEDS ORDERED: Iopamidol 612 MG/ML 100 ML Bottle IV SCH (18:30)
[2023-09-20] MEDS ORDERED: Sodium Chloride 0.9% 50 ML IV SCH (18:30)
[2023-09-20] MEDS ORDERED: Prochlorperazine 10 MG/2 ML SDV IVPUSH ONE (20:12)
[2023-09-20] MEDS ORDERED: Lidocaine 4% Top Soln 50 ML Bottle MUCMEM ONE (20:37)
[2023-09-20] MEDS ORDERED: Pantoprazole 40 MG Vial IVPUSH ONE (20:46)
[2023-09-20] MEDS ORDERED: Ondansetron 4 MG/2 ML SDV IV PRN (21:27)
[2023-09-20] MEDS ORDERED: Enoxaparin 40 MG/0.4 ML Syringe SUBCUT ONE (22:00)
[2023-09-21] MEDS: Sodium Chloride 0.9% 1,000 ML IV SCH ×3 (00:27→19:43)
[2023-09-21] MEDS ORDERED: Acetaminophen 1,000 MG in Premix Bag 1 BAG IV ONE (02:15)
[2023-09-21 05:55] LABS: BASOPHILS PERCENT AUTO 0.2 % (0.1-1.3); EOSINOPHILS ABSOLUTE AUTO 0.15 K/uL (0.00-0.40); EOSINOPHILS PERCENT AUTO 1.8 % (0.0-5.4); HEMATOCRIT 38.7 % (34.3-46.0); IMMATURE GRAN PERCENT AUTO 0.2 % (0.0-0.7); LYMPHOCYTES ABSOLUTE AUTO 1.75 K/uL (0.8-3.3); LYMPHOCYTES PERCENT AUTO 20.9 % (11.4-47.7); MEAN CORPUSCULAR HEMOGLOBIN 31.9 pg (31.6-35.5); MEAN CORPUSCULAR HGB CONC 33.6 g/dL (31.6-35.5); MEAN CORPUSCULAR VOLUME 94.9 fL (81.4-99.0); MONOCYTES ABSOLUTE AUTO 0.75 K/uL (0.20-0.90); NEUTROPHILS ABSOLUTE AUTO 5.68 K/uL (1.0-7.6); NEUTROPHILS PERCENT AUTO 67.9 % (40.0-78.1); PLATELET COUNT,PLT 245 K/uL (130-375); RED BLOOD CELL COUNT 4.08 M/uL (3.77-5.24); WHITE BLOOD CELL COUNT,WBC 8.4 K/uL (3.2-11.0)
[2023-09-21 06:23] LABS: BASOPHILS ABSOLUTE AUTO 0.02 K/uL (0.00-0.10); IMMATURE GRAN ABSOLUTE AUTO 0.02 K/uL (0.00-0.23)
[2023-09-21 06:28] LABS: ALANINE AMINOTRANSFERASE,ALT 26 U/L (12-78); ALBUMIN 3.2 g/dL (3.4-5.0); ALKALINE PHOSPHATASE 79 U/L (46-116); ASPARTATE AMNIOTRANSFERASE,AST 19 U/L (15-37); BILIRUBIN TOTAL 0.8 mg/dL (0.2-1.0); BLOOD UREA NITROGEN,BUN 15 mg/dL (7-18); CALCIUM 8.5 mg/dL (8.5-10.1); CARBON DIOXIDE,CO2 27 mmol/L (21-32); CHLORIDE,CL 104 mmol/L (100-108); CREATININE 0.7 mg/dL (0.6-1.0); EST CRCL DRUG DOSING (CG) 44.78 mL/min; ESTIMATED GFR 84 mL/min (>60); GLUCOSE RANDOM 108 mg/dL (74-106); POTASSIUM,K 3.9 mmol/L (3.6-5.2); PROTEIN TOTAL,TP 6.4 g/dL (6.4-8.2); SODIUM,NA 138 mmol/L (140-148)
[2023-09-21 06:38] LABS: ANION GAP 10.9 mmol/L (5.0-14.0)
[2023-09-21] MEDS: Metoprolol Tartrate 50 MG Tab PO SCH ×2 (09:41→20:39)
[2023-09-21] MEDS: Aspirin 81 MG Tab.EC PO SCH (09:41)
[2023-09-21] MEDS ORDERED: Pantoprazole 40 MG Vial IVPUSH SCH (21:00)
[2023-09-21] MEDS ORDERED: Enoxaparin 40 MG/0.4 ML Syringe SUBCUT SCH (21:00)
[2023-09-22 04:44] LABS: HEMATOCRIT 34.8 % (34.3-46.0); HEMOGLOBIN 11.5 g/dL (11.2-15.5); MEAN CORPUSCULAR VOLUME 96.9 fL (81.4-99.0); RED BLOOD CELL COUNT 3.59 M/uL (3.77-5.24); WHITE BLOOD CELL COUNT,WBC 7.9 K/uL (3.2-11.0)
[2023-09-22 05:01] LABS: CALCIUM 8.2 mg/dL (8.5-10.1); CREATININE 0.6 mg/dL (0.6-1.0); EST CRCL DRUG DOSING (CG) 52.25 mL/min; POTASSIUM,K 3.6 mmol/L (3.6-5.2)
[2023-09-22 05:10] LABS: ANION GAP 12.6 mmol/L (5.0-14.0)
[2023-09-22] MEDS: Sodium Chloride 0.9% 1,000 ML IV SCH (05:43)
[2023-09-22] MEDS: Benzocaine/Cetylpyridinium/Menthol Lozenge MUCMEM PRN ×2 (06:36→07:21)
[2023-09-22] MEDS: Aspirin 81 MG Tab.EC PO SCH (08:54)
[2023-09-22] MEDS: Metoprolol Tartrate 50 MG Tab PO SCH ×2 (08:54→20:36)
[2023-09-22] MEDS ORDERED: Acetaminophen 325 MG Tab PO PRN (14:23)
[2023-09-22] MEDS: Apixaban 5 MG Tab PO SCH (20:36)
[2023-09-22] MEDS ORDERED: Pantoprazole 40 MG Tab.CR PO SCH (21:00)
[2023-09-22] MEDS ORDERED: atorvaSTATin 20 MG Tab PO SCH (21:00)
[2023-09-23] MEDS: Pantoprazole 40 MG Tab.CR PO SCH ×2 (07:42→08:48)
[2023-09-23] MEDS: Apixaban 5 MG Tab PO SCH (08:46)
[2023-09-23] MEDS: Aspirin 81 MG Tab.EC PO SCH (08:47)
[2023-09-23 08:53] VITALS: BP 145/80; PULSE 84
[2023-09-23] MEDS ORDERED: Metoprolol Succinate 25 MG Tab.ER PO SCH (09:00)
[2023-09-23] MEDS ORDERED: Aspirin 81 MG Tab.EC PO SCH (21:00)
== END 2023-09-23 11:11 | disposition home or self-care (01) | DRG 390 ==
LOC: JP.ED 17:21 → JP.MS 20:49
PROVIDERS: ADMIT Nurse Practitioner; ATTEND Internal Medicine
PROC: 0D9670Z Drainage of Stomach with Drainage Device, Via Natural or Artificial Opening (ICD-10-PCS; principal; 2023-09-20)
DX: K56.699 Other intestinal obstruction unspecified as to partial versus complete obstruction (principal); I25.10 Atherosclerotic heart disease of native coronary artery without angina pectoris; E78.00 Pure hypercholesterolemia, unspecified; I10 Essential (primary) hypertension; K21.9 Gastro-esophageal reflux disease without esophagitis; I48.91 Unspecified atrial fibrillation; F32.A Depression, unspecified; I48.0 Paroxysmal atrial fibrillation; G62.9 Polyneuropathy, unspecified; Z98.890 Other specified postprocedural states; Z88.1 Allergy status to other antibiotic agents; Z88.8 Allergy status to other drugs, medicaments and biological substances; Z88.0 Allergy status to penicillin; Z79.899 Other long term (current) drug therapy; Z88.6 Allergy status to analgesic agent; Z11.52 Encounter for screening for COVID-19; Z79.01 Long term (current) use of anticoagulants; Z79.82 Long term (current) use of aspirin; I25.2 Old myocardial infarction; Z87.01 Personal history of pneumonia (recurrent); Z86.73 Personal history of transient ischemic attack (TIA), and cerebral infarction without residual deficits; Z98.49 Cataract extraction status, unspecified eye; Z95.5 Presence of coronary angioplasty implant and graft; Z90.710 Acquired absence of both cervix and uterus
CPT/HCPCS: 36415; 74018; 74177; 80053; 83605; 83690; 84484; 85025; 86140; 93005; 96361; 96374; 96375; 99285; J0780; J2405; J3490; J7030; Q9967; 74019; 74019-26; 80048; 85027; A9270-GY; C9113; J0131; J1650; U0002

== ENCOUNTER 2024-07-01 16:36 | Emergency (ER) | payer MEDICARE, BC ==
[2024-07-01 18:07] LABS: APPEARANCE,URINE CLEAR (CLEAR); BILIRUBIN,URINE NEGATIVE (NEGATIVE); COLOR,URINE YELLOW (YELLOW); GLUCOSE,URINE NEGATIVE (NEGATIVE); KETONES,URINE NEGATIVE (NEGATIVE); LEUKOCYTE ESTERASE,URINE SMALL (NEGATIVE); NITRITE,URINE POSITIVE (NEGATIVE); OCCULT BLOOD,URINE TRACE-INTACT (NEGATIVE); PROTEIN,URINE NEGATIVE (NEGATIVE); UROBILINOGEN,URINE 0.2 EU/dL (0.2-1.0)
[2024-07-01 18:16] LABS: RBC,URINE 0-5 (0-5); WBC,URINE 0-5 (0-5)
[2024-07-01 18:17] LABS: AMORPHOUS SEDIMENT,URINE FEW; BACTERIA,URINE MODERATE; EPITHELIAL CELLS,URINE RARE; MUCUS,URINE NOT SEEN
[2024-07-01 19:00] LABS: BASOPHILS ABSOLUTE AUTO 0.04 K/uL (0.00-0.10); BASOPHILS PERCENT AUTO 0.6 % (0.1-1.3); EOSINOPHILS ABSOLUTE AUTO 0.17 K/uL (0.00-0.40); EOSINOPHILS PERCENT AUTO 2.5 % (0.0-5.4); HEMOGLOBIN 12.3 g/dL (11.2-15.5); IMMATURE GRAN PERCENT AUTO 0.3 % (0.0-0.7); LYMPHOCYTES ABSOLUTE AUTO 2.03 K/uL (0.8-3.3); LYMPHOCYTES PERCENT AUTO 29.6 % (11.4-47.7); MEAN CORPUSCULAR HEMOGLOBIN 32.3 pg (31.6-35.5); MEAN CORPUSCULAR HGB CONC 33.2 g/dL (31.6-35.5); MEAN CORPUSCULAR VOLUME 97.1 fL (81.4-99.0); MONOCYTES ABSOLUTE AUTO 0.72 K/uL (0.20-0.90); MONOCYTES PERCENT AUTO 10.5 % (3.3-12.6); NEUTROPHILS ABSOLUTE AUTO 3.88 K/uL (1.0-7.6); NEUTROPHILS PERCENT AUTO 56.5 % (40.0-78.1); PLATELET COUNT,PLT 228 K/uL (130-375); RED BLOOD CELL COUNT 3.81 M/uL (3.77-5.24); WHITE BLOOD CELL COUNT,WBC 6.9 K/uL (3.2-11.0)
[2024-07-01 19:01] LABS: IMMATURE GRAN ABSOLUTE AUTO 0.02 K/uL (0.00-0.23)
[2024-07-01] MEDS: Sodium Chloride 0.9% 80 ML IV SCH (19:20)
[2024-07-01] MEDS: Iopamidol 612 MG/ML 100 ML Bottle IV SCH (19:20)
[2024-07-01 19:22] LABS: A/G RATIO 0.9 (1.2-2.2); ALANINE AMINOTRANSFERASE,ALT 29 U/L (12-78); ALBUMIN 3.4 g/dL (3.4-5.0); ALKALINE PHOSPHATASE 89 U/L (46-116); ASPARTATE AMNIOTRANSFERASE,AST 18 U/L (15-37); BILIRUBIN TOTAL 0.7 mg/dL (0.2-1.0); BLOOD UREA NITROGEN,BUN 17 mg/dL (7-18); CALCIUM 9.4 mg/dL (8.5-10.1); CARBON DIOXIDE,CO2 29 mmol/L (21-32); CHLORIDE,CL 101 mmol/L (100-108); CREATININE 0.8 mg/dL (0.6-1.0); EST CRCL DRUG DOSING (CG) 40.98 mL/min; ESTIMATED GFR 71 mL/min (>60); GLUCOSE RANDOM 99 mg/dL (74-106); POTASSIUM,K 4.3 mmol/L (3.6-5.2); SODIUM,NA 137 mmol/L (140-148)
[2024-07-01 19:23] LABS: ANION GAP 11.3 mmol/L (5.0-14.0)
[2024-07-01] MEDS: Sodium Chloride 0.9% 1,000 ML IV SCH (19:56)
[2024-07-01 20:21] VITALS: BP 139/71; PULSE 65
== END 2024-07-01 21:35 | disposition home or self-care (01) ==
LOC: JP.ED 16:36
DX: S30.1XXA Contusion of abdominal wall, initial encounter (principal); N39.0 Urinary tract infection, site not specified; E78.00 Pure hypercholesterolemia, unspecified; I10 Essential (primary) hypertension; I25.10 Atherosclerotic heart disease of native coronary artery without angina pectoris; K21.9 Gastro-esophageal reflux disease without esophagitis; Z87.891 Personal history of nicotine dependence; Z90.710 Acquired absence of both cervix and uterus; Z88.0 Allergy status to penicillin; Z88.1 Allergy status to other antibiotic agents; Z88.8 Allergy status to other drugs, medicaments and biological substances; Z88.6 Allergy status to analgesic agent; Z79.899 Other long term (current) drug therapy; Z79.82 Long term (current) use of aspirin; X58.XXXA Exposure to other specified factors, initial encounter
CPT/HCPCS: 36415; 74177; 80053; 81001; 83605; 85025; 87086; 99284; J3490; J7030; Q9967

== ENCOUNTER 2024-09-22 06:31 | Inpatient (IN) | payer MEDICARE, BC ==
[2024-09-22] MEDS: Ondansetron 4 MG/2 ML SDV IVPUSH ONE (07:27)
[2024-09-22] MEDS: fentaNYL 100 MCG/2 ML SDV IVPUSH ONE (07:27)
[2024-09-22] MEDS: Sodium Chloride 0.9% 1,000 ML IV STA (07:27)
[2024-09-22] MEDS: Sodium Chloride 0.9% 10 ML Syringe FLUSH PRN ×2 (07:32→08:12)
[2024-09-22 07:39] LABS: BASOPHILS ABSOLUTE AUTO 0.04 K/uL (0.00-0.10); BASOPHILS PERCENT AUTO 0.2 % (0.1-1.3); EOSINOPHILS ABSOLUTE AUTO 0.14 K/uL (0.00-0.40); EOSINOPHILS PERCENT AUTO 0.8 % (0.0-5.4); HEMATOCRIT 42.4 % (34.3-46.0); HEMOGLOBIN 14.4 g/dL (11.2-15.5); IMMATURE GRAN ABSOLUTE AUTO 0.06 K/uL (0.00-0.23); IMMATURE GRAN PERCENT AUTO 0.3 % (0.0-0.7); LYMPHOCYTES ABSOLUTE AUTO 1.65 K/uL (0.8-3.3); LYMPHOCYTES PERCENT AUTO 9.2 % (11.4-47.7); MEAN CORPUSCULAR HEMOGLOBIN 32.5 pg (31.6-35.5); MEAN CORPUSCULAR VOLUME 95.7 fL (81.4-99.0); MONOCYTES PERCENT AUTO 7.3 % (3.3-12.6); NEUTROPHILS ABSOLUTE AUTO 14.67 K/uL (1.0-7.6); NEUTROPHILS PERCENT AUTO 82.2 % (40.0-78.1); PLATELET COUNT,PLT 302 K/uL (130-375); RED BLOOD CELL COUNT 4.43 M/uL (3.77-5.24); WHITE BLOOD CELL COUNT,WBC 17.9 K/uL (3.2-11.0)
[2024-09-22 08:07] LABS: A/G RATIO 0.9 (1.2-2.2); ALANINE AMINOTRANSFERASE,ALT 27 U/L (12-78); ALBUMIN 3.8 g/dL (3.4-5.0); ALKALINE PHOSPHATASE 110 U/L (46-116); ASPARTATE AMNIOTRANSFERASE,AST 18 U/L (15-37); BILIRUBIN TOTAL 0.6 mg/dL (0.2-1.0); BLOOD UREA NITROGEN,BUN 16 mg/dL (7-18); CALCIUM 9.6 mg/dL (8.5-10.1); CARBON DIOXIDE,CO2 31 mmol/L (21-32); CHLORIDE,CL 100 mmol/L (100-108); CREATININE 0.9 mg/dL (0.6-1.0); EST CRCL DRUG DOSING (CG) 35.74 mL/min; ESTIMATED GFR 61 mL/min (>60); GLUCOSE RANDOM 131 mg/dL (74-106); POTASSIUM,K 3.6 mmol/L (3.6-5.2); SODIUM,NA 140 mmol/L (140-148)
[2024-09-22] MEDS: Sodium Chloride 0.9% 80 ML IV ONE (08:12)
[2024-09-22] MEDS: Iopamidol 612 MG/ML 100 ML Bottle IV PRN (08:13)
[2024-09-22] MEDS: LORazepam 2 MG/ML SDV IVPUSH ONE (08:28)
[2024-09-22] MEDS: HYDROmorphone 0.5 MG/0.5 ML Syringe IVPUSH ONE (08:29)
[2024-09-22 10:39] LABS: APPEARANCE,URINE SLIGHTLY CLOUDY (CLEAR); BILIRUBIN,URINE NEGATIVE (NEGATIVE); COLOR,URINE YELLOW (YELLOW); GLUCOSE,URINE NEGATIVE (NEGATIVE); KETONES,URINE NEGATIVE (NEGATIVE); LEUKOCYTE ESTERASE,URINE TRACE (NEGATIVE); NITRITE,URINE NEGATIVE (NEGATIVE); OCCULT BLOOD,URINE NEGATIVE (NEGATIVE); PH,URINE 8.5 (5.0-8.0); PROTEIN,URINE NEGATIVE (NEGATIVE); UROBILINOGEN,URINE 0.2 EU/dL (0.2-1.0)
[2024-09-22 10:46] LABS: AMORPHOUS SEDIMENT,URINE MANY; BACTERIA,URINE RARE; EPITHELIAL CELLS,URINE FEW; MUCUS,URINE NOT SEEN; RBC,URINE NOT SEEN (0-5); WBC,URINE 0-5 (0-5)
[2024-09-22] MEDS ORDERED: HYDROmorphone 1 MG/ML Syringe IVPUSH PRN (13:48)
[2024-09-22] MEDS ORDERED: Acetaminophen 325 MG Tab PO PRN (13:48)
[2024-09-22] MEDS ORDERED: Ondansetron 4 MG Tab.DIS PO PRN (13:48)
[2024-09-22] MEDS: HYDROmorphone 0.5 MG/0.5 ML Syringe IVPUSH PRN (14:13)
[2024-09-22] MEDS: Ondansetron 4 MG/2 ML SDV IV PRN (14:13)
[2024-09-22] MEDS: Sodium Chloride 0.9% 1,000 ML IV SCH (14:13)
[2024-09-22] MEDS: Pantoprazole 40 MG Vial IV SCH (14:14)
[2024-09-23] MEDS ORDERED: Non-Formulary Medication 1 Each (Metoprolol Succinate [Metoprolol Succinate] 100 MG Tab.Er PO SCH (09:00)
[2024-09-23] MEDS: LORazepam 2 MG/ML SDV IVPUSH ONE (09:34)
[2024-09-23] MEDS: Diatrizoate Meglumine/Diatrizoate Sodium 37% 120 ML Bottle PO SCH (17:56)
[2024-09-23] MEDS: Promethazine 12.5 MG in Sodium Chloride 0.9% 50 ML IV ONE (17:57)
[2024-09-24] MEDS: Diltiazem IR 30 MG Tab PO ONE (04:03)
[2024-09-24 04:58] LABS: HEMATOCRIT 38.6 % (34.3-46.0); HEMOGLOBIN 12.5 g/dL (11.2-15.5); MEAN CORPUSCULAR HEMOGLOBIN 32.1 pg (31.6-35.5); MEAN CORPUSCULAR HGB CONC 32.4 g/dL (31.6-35.5); MEAN CORPUSCULAR VOLUME 99.2 fL (81.4-99.0); RED BLOOD CELL COUNT 3.89 M/uL (3.77-5.24); WHITE BLOOD CELL COUNT,WBC 10.4 K/uL (3.2-11.0)
[2024-09-24 05:14] LABS: CALCIUM 8.6 mg/dL (8.5-10.1); CREATININE 0.6 mg/dL (0.6-1.0); EST CRCL DRUG DOSING (CG) 53.61 mL/min; MAGNESIUM 1.9 mg/dL (1.8-2.4)
[2024-09-25 12:01] VITALS: BP 135/67; PULSE 64
[2024-09-25] MEDS: Apixaban 5 MG Tab PO SCH (12:05)
== END 2024-09-25 15:53 | disposition home or self-care (01) | DRG 390 ==
LOC: JP.ED 06:31 → JP.MS 12:21
PROVIDERS: ADMIT Internal Medicine; ATTEND Hospitalist
DX: K56.609 Unspecified intestinal obstruction, unspecified as to partial versus complete obstruction (principal); K56.50 Intestinal adhesions [bands], unspecified as to partial versus complete obstruction; I48.0 Paroxysmal atrial fibrillation; I10 Essential (primary) hypertension; Z66 Do not resuscitate; I25.10 Atherosclerotic heart disease of native coronary artery without angina pectoris; E78.00 Pure hypercholesterolemia, unspecified; K21.9 Gastro-esophageal reflux disease without esophagitis; M81.0 Age-related osteoporosis without current pathological fracture; F32.A Depression, unspecified; Z88.1 Allergy status to other antibiotic agents; I25.2 Old myocardial infarction; Z98.890 Other specified postprocedural states; Z88.0 Allergy status to penicillin; Z88.8 Allergy status to other drugs, medicaments and biological substances; Z88.2 Allergy status to sulfonamides; Z79.899 Other long term (current) drug therapy; Z79.82 Long term (current) use of aspirin; Z79.01 Long term (current) use of anticoagulants; Z87.19 Personal history of other diseases of the digestive system; Z86.73 Personal history of transient ischemic attack (TIA), and cerebral infarction without residual deficits; Z98.49 Cataract extraction status, unspecified eye; Z95.5 Presence of coronary angioplasty implant and graft; Z90.710 Acquired absence of both cervix and uterus; Z87.891 Personal history of nicotine dependence
CPT/HCPCS: 36415; 74018; 74018-26; 74019; 74019-26; 74177; 80048; 80053; 81001; 83605; 83690; 83735; 85025; 85027; 96361; 96374; 96375; 99222; 99232; 99238; 99285; 99285-25; A9270-GY; J2060; J2405; J2470; J2550; J3010; J3490; J7030; Q9963; Q9967

== ENCOUNTER 2025-07-04 12:07 | Emergency (ER) | payer MEDICARE, BC ==
[2025-07-04 12:52] LABS: APPEARANCE,URINE CLEAR (CLEAR); GLUCOSE,URINE NEGATIVE (NEGATIVE); OCCULT BLOOD,URINE NEGATIVE (NEGATIVE)
[2025-07-04 13:03] LABS: SQUAMOUS EPITHELIAL CELLS,UR NOT SEEN /HPF; UROTHELIAL CELLS,URINE NOT SEEN /HPF
[2025-07-04 13:43] LABS: BASOPHILS PERCENT AUTO 0.3 % (0.1-1.3); EOSINOPHILS ABSOLUTE AUTO 0.13 K/uL (0.00-0.40); EOSINOPHILS PERCENT AUTO 1.9 % (0.0-5.4); IMMATURE GRAN PERCENT AUTO 0.1 % (0.0-0.7); LYMPHOCYTES ABSOLUTE AUTO 2.02 K/uL (0.8-3.3); LYMPHOCYTES PERCENT AUTO 30.1 % (11.4-47.7); MONOCYTES ABSOLUTE AUTO 0.63 K/uL (0.20-0.90); MONOCYTES PERCENT AUTO 9.4 % (3.3-12.6); NEUTROPHILS ABSOLUTE AUTO 3.89 K/uL (1.0-7.6); NEUTROPHILS PERCENT AUTO 58.2 % (40.0-78.1); PLATELET COUNT,PLT 225 K/uL (130-375); RED BLOOD CELL COUNT 4.07 M/uL (3.77-5.24); WHITE BLOOD CELL COUNT,WBC 6.7 K/uL (3.2-11.0)
[2025-07-04 13:44] LABS: BASOPHILS ABSOLUTE AUTO 0.02 K/uL (0.00-0.10); IMMATURE GRAN ABSOLUTE AUTO 0.01 K/uL (0.00-0.23)
[2025-07-04 14:03] LABS: A/G RATIO 0.9 (1.2-2.2); ALANINE AMINOTRANSFERASE,ALT 32 U/L (12-78); ASPARTATE AMNIOTRANSFERASE,AST 21 U/L (15-37); BILIRUBIN TOTAL 0.6 mg/dL (0.2-1.0); BLOOD UREA NITROGEN,BUN 15 mg/dL (7-18); CARBON DIOXIDE,CO2 30 mmol/L (21-32); CHLORIDE,CL 105 mmol/L (100-108); CREATININE 0.6 mg/dL (0.6-1.0); EST CRCL DRUG DOSING (CG) 53.61 mL/min; ESTIMATED GFR 86 mL/min (>60); GLUCOSE RANDOM 89 mg/dL (74-106); POTASSIUM,K 3.9 mmol/L (3.6-5.2); PROTEIN TOTAL,TP 7.0 g/dL (6.4-8.2); SODIUM,NA 142 mmol/L (140-148)
[2025-07-04 15:17] VITALS: BP 130/58; PULSE 53
== END 2025-07-04 16:19 | disposition home or self-care (01) ==
LOC: JP.ED 12:07
DX: N39.0 Urinary tract infection, site not specified (principal); I10 Essential (primary) hypertension; E78.00 Pure hypercholesterolemia, unspecified; Z88.0 Allergy status to penicillin; Z88.1 Allergy status to other antibiotic agents; Z88.8 Allergy status to other drugs, medicaments and biological substances; Z79.82 Long term (current) use of aspirin; Z79.899 Other long term (current) drug therapy; Z86.16 Personal history of COVID-19; Z90.710 Acquired absence of both cervix and uterus; Z87.891 Personal history of nicotine dependence
CPT/HCPCS: 36415; 70460; 80053; 81001; 85025; 87086; 99284; A9270